=== PATIENT | male | born 1935 | race Caucasian/White ===

== ENCOUNTER 2017-11-19 14:00 | Inpatient (IN) | payer MEDICARE, BC ==
[~2017-11-19] VITALS: Ht 188 cm; Wt 150.3 kg
[~2017-11-19 14:00] MED LIST: ACET325T14 PO; APIX2.5T PO; CHOL400C11 PO; FURO-93 PO; IRBE1TAB37 PO; MELA1TAB19 SL; MIRA25TA PO; POTA2.5T PO; PRED2.5T PO
[2017-11-19 16:20] VITALS: BP 128/76
[2017-11-19] MEDS ORDERED: MIRA50TA PO (16:38)
[2017-11-19] MEDS ORDERED: PRED10TA PO (16:38)
[2017-11-19] MEDS ORDERED: IRBE150T25 PO (16:38)
[2017-11-19] MEDS ORDERED: FURO20TA3 PO (16:38)
[2017-11-19] MEDS ORDERED: DOCU-131 PO (16:38)
[2017-11-19] MEDS: PLEASE ENTER HEIGHT AND WEIGHT MC SCH ×2 (17:00→20:15)
[2017-11-19] MEDS ORDERED: DOCUSATE 100 MG CAPSULE PO PRN (17:00)
[2017-11-19 17:18] LABS: BASOPHILS # (AUTO) 0.07 x10^3/uL (0-0.1); BASOPHILS % (AUTO) 1 % (0-1); EOSINOPHILS # (AUTO) 0.02 x10^3/uL (0-0.4); EOSINOPHILS % (AUTO) 0 % (1-7); LYMPHOCYTES # (AUTO) 2.45 x10^3/uL (1-3.4); LYMPHOCYTES % (AUTO) 24 % (22-44); MD NO; MEAN CORPUSCULAR HEMOGLOBIN 31.6 pg (27.5-34.5); MEAN CORPUSCULAR HGB CONC 33.7 g/dL (33.2-36.2); MEAN CORPUSCULAR VOLUME 93.8 fL (81-97); MEAN PLATELET VOLUME 7.3 fL (7.4-10.4); MONOCYTES # (AUTO) 0.42 x10^3/uL (0.2-0.8); MONOCYTES % (AUTO) 4 % (2-9); NEUTROPHILS % (AUTO) 71 % (42-75); PLATELET COUNT 115 x10^3/uL (130-400); RED BLOOD COUNT 4.83 x10^6/uL (4.38-5.82); RED CELL DISTRIBUTION WIDTH 13.7 % (9.4-14.8)
[2017-11-19] MEDS ORDERED: ALBUTEROL SULFATE 2.5 MG/3 ML NPPB PRN (18:00)
[2017-11-19] MEDS ORDERED: PLEASE ENTER HEIGHT AND WEIGHT MC SCH (18:00)
[2017-11-19 18:02] VITALS: BP 128/76
[2017-11-19 20:40] VITALS: BP 136/90
[2017-11-19 21:43] LABS: MICROSCOPIC INDICATED
[2017-11-19 21:44] LABS: CULTURE INDICATED? YES
[2017-11-20 03:48] VITALS: BP 150/79
[2017-11-20 05:33] LABS: ALBUMIN 2.7 g/dL (3.4-5.0); ANION GAP 8 mmol/L (5-15); CALCIUM 9.4 mg/dL (8.5-10.1); CHLORIDE 102 mmol/L (98-107)
[2017-11-20 05:45] LABS: ALANINE AMINOTRANSFERASE 33 U/L (12-78); ALKALINE PHOSPHATASE 62 U/L (45-117); BILIRUBIN,TOTAL 0.8 mg/dL (0.2-1.0); CREATININE 1.33 mg/dL (0.7-1.3); TOTAL PROTEIN 6.3 g/dL (6.4-8.2)
[2017-11-20 08:20] VITALS: BP 155/94
[2017-11-20] MEDS: TEMPLATE NON-FORMULARY MED. (Mirabegron** (Myrbetriq**) 50 MG) PO SCH (08:47)
[2017-11-20] MEDS ORDERED: FUROSEMIDE 40 MG TABLET PO SCH (09:00)
[2017-11-20] MEDS: NYSTATIN TOPICAL POWDER 15GM TP SCH ×2 (09:07→21:43)
[2017-11-20] MEDS: IRBESARTAN 150 MG TABLET PO SCH (09:07)
[2017-11-20] MEDS: CEFTRIAXONE 1,000 MG in SODIUM CHLORIDE 0.9% 50 ML IV SCH (10:49)
[2017-11-20 14:22] VITALS: BP 99/59
[2017-11-20] MEDS: POTASSIUM CHLORIDE 20 MEQ PACKET PO SCH (16:58)
[2017-11-20] MEDS: FUROSEMIDE 40 MG/4 ML IV SCH (16:59)
[2017-11-20 21:24] VITALS: BP 94/65
[2017-11-20] MEDS: ACETAMINOPHEN 325 MG TABLET PO PRN (22:28)
[2017-11-21 01:25] VITALS: BP 122/75
[2017-11-21 05:59] LABS: ALBUMIN 2.8 g/dL (3.4-5.0); ANION GAP 9 mmol/L (5-15); CALCIUM 9.7 mg/dL (8.5-10.1); CHLORIDE 103 mmol/L (98-107); CREATININE 1.59 mg/dL (0.7-1.3)
[2017-11-21 06:56] VITALS: BP 123/87
[2017-11-21] MEDS: FUROSEMIDE 40 MG/4 ML IV SCH (07:30)
[2017-11-21] MEDS: TEMPLATE NON-FORMULARY MED. (Mirabegron** (Myrbetriq**) 50 MG) PO SCH (09:00)
[2017-11-21] MEDS: IRBESARTAN 150 MG TABLET PO SCH (09:58)
[2017-11-21] MEDS: FUROSEMIDE 40 MG TABLET PO SCH (09:58)
[2017-11-21] MEDS: POTASSIUM CHLORIDE 20 MEQ PACKET PO SCH (09:58)
[2017-11-21] MEDS: NYSTATIN TOPICAL POWDER 15GM TP SCH ×2 (10:12→21:12)
[2017-11-21] MEDS: CEFTRIAXONE 1,000 MG in SODIUM CHLORIDE 0.9% 50 ML IV SCH (10:12)
[2017-11-21 12:45] VITALS: BP 93/59
[2017-11-21] MEDS: ACETAMINOPHEN 325 MG TABLET PO PRN (13:34)
[2017-11-21] MEDS ORDERED: OXYcodone IR 5MG TABLET ONE (17:50)
[2017-11-21] MEDS ORDERED: OXYcodone IR 5MG TABLET PO PRN (18:00)
[2017-11-21 20:46] VITALS: BP 94/59
[2017-11-21] MEDS: DIPHENHYDRAMINE 25 MG CAPSULE PO PRN (21:13)
[2017-11-22 01:58] VITALS: BP 128/70
[2017-11-22 05:54] LABS: ALBUMIN 2.6 g/dL (3.4-5.0); ANION GAP 9 mmol/L (5-15); CALCIUM 9.2 mg/dL (8.5-10.1); CHLORIDE 103 mmol/L (98-107); CREATININE 1.25 mg/dL (0.7-1.3)
[2017-11-22 07:24] VITALS: BP 125/71
[2017-11-22] MEDS: TEMPLATE NON-FORMULARY MED. (Mirabegron** (Myrbetriq**) 50 MG) PO SCH (09:00)
[2017-11-22] MEDS: FUROSEMIDE 40 MG TABLET PO SCH (09:54)
[2017-11-22] MEDS: IRBESARTAN 150 MG TABLET PO SCH (09:54)
[2017-11-22] MEDS: NYSTATIN TOPICAL POWDER 15GM TP SCH ×2 (09:55→20:21)
[2017-11-22 12:34] VITALS: BP 106/68
[2017-11-22 19:50] VITALS: BP 115/81
[2017-11-22] MEDS: DIPHENHYDRAMINE 25 MG CAPSULE PO PRN (21:21)
[2017-11-22] MEDS: ACETAMINOPHEN 325 MG TABLET PO PRN (21:22)
[2017-11-23 00:49] VITALS: BP 113/89
[2017-11-23 06:43] VITALS: BP 138/82
[2017-11-23] MEDS: TEMPLATE NON-FORMULARY MED. (Mirabegron** (Myrbetriq**) 50 MG) PO SCH (09:00)
[2017-11-23] MEDS: FUROSEMIDE 40 MG TABLET PO SCH (09:10)
[2017-11-23] MEDS: IRBESARTAN 150 MG TABLET PO SCH (09:10)
[2017-11-23] MEDS: NYSTATIN TOPICAL POWDER 15GM TP SCH (09:11)
[2017-11-23] MEDS: ACETAMINOPHEN 325 MG TABLET PO PRN (13:35)
== END 2017-11-23 14:59 | disposition hospice, home (50) | DRG 291 ==
LOC: 4WST 15:54
PROVIDERS: ADMIT Internal Medicine; ATTEND Internal Medicine
PROC: 0T9B70Z Drainage of Bladder with Drainage Device, Via Natural or Artificial Opening (ICD-10-PCS; principal; 2017-11-19)
PROC: 5A09357 Assistance with Respiratory Ventilation, Less than 24 Consecutive Hours, Continuous Positive Airway Pressure (ICD-10-PCS; 2017-11-20)
PROC: 5A09357 Assistance with Respiratory Ventilation, Less than 24 Consecutive Hours, Continuous Positive Airway Pressure (ICD-10-PCS; 2017-11-21)
PROC: 5A09357 Assistance with Respiratory Ventilation, Less than 24 Consecutive Hours, Continuous Positive Airway Pressure (ICD-10-PCS; 2017-11-22)
DX: I11.0 Hypertensive heart disease with heart failure (principal); J96.20 Acute and chronic respiratory failure, unspecified whether with hypoxia or hypercapnia; E43 Unspecified severe protein-calorie malnutrition; D68.69 Other thrombophilia; Z68.41 Body mass index [BMI] 40.0-44.9, adult; N39.0 Urinary tract infection, site not specified; Z99.11 Dependence on respirator [ventilator] status; G70.00 Myasthenia gravis without (acute) exacerbation; Z88.8 Allergy status to other drugs, medicaments and biological substances; D69.6 Thrombocytopenia, unspecified; E66.01 Morbid (severe) obesity due to excess calories; G47.33 Obstructive sleep apnea (adult) (pediatric); I27.29 Other secondary pulmonary hypertension; I48.2 Chronic atrial fibrillation; L30.4 Erythema intertrigo; Z66 Do not resuscitate; Z79.01 Long term (current) use of anticoagulants; Z86.73 Personal history of transient ischemic attack (TIA), and cerebral infarction without residual deficits; Z86.711 Personal history of pulmonary embolism; I50.33 Acute on chronic diastolic (congestive) heart failure
CPT/HCPCS: 36415; 80048; 80053; 81001; 82040; 83735; 83880; 84443; 85025; 87086; 93306; J0696; J1940; J7512; Q0163